=== PATIENT | male | born 1980 | race Caucasian/White ===

== ENCOUNTER → 2020-12-22 | Outpatient (CLI) | payer OTHER ==
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
== END ==
LOC: M RAD 11:30
PROVIDERS: ATTEND Nurse Practitioner Family
DX: R93.6 Abnormal findings on diagnostic imaging of limbs (principal)

== ENCOUNTER → 2020-12-29 | Outpatient (CLI) | payer OTHER ==
[~2020-12-29] MED LIST: OMEGA-3 1000MG CAPSULE ONE; PROHANCE 279.3MG/ML 15ML VIAL ONE
--- NOTE | 2020-12-29 12:00 | REP ---
INDICATION: LOCALIZED SWELLING/MASS/LUMP COMPARISON: Ultrasound 12/22/2020. TECHNIQUE: Multiple sequences obtained in the axial, coronal and sagittal planes prior to and following the intravenous administration of 21 cc ProHance. FINDINGS: In the right gluteal soft tissues a large cystic mass is present. It extends from just below the skin surface to the lateral surface of the gluteal muscles, predominantly contacting the gluteus medius muscle. There is no visible invasion of the gluteus medius muscle. Greatest craniocaudal dimension is 28.8 cm, AP 10.3 cm in transverse 10.1 cm. There are relatively smooth but lobulated margins of the cystic mass. There are internal nodular solid-appearing components, predominantly superiorly. These solid-appearing areas demonstrate ill-defined internal enhancement. The largest nodular solid component is approximately 4.7 cm in maximum diameter. There are diffuse areas of irregular wall thickening. There are multiple variable thickness internal septations. The remaining visualized soft tissues demonstrate no other evidence of mass. No adenopathy is seen along the right iliac or femoral vasculature. The visualized intrapelvic structures appear unremarkable. The visualized osseous structures are unremarkable. IMPRESSION: Large complex cystic and solid mass in the right gluteal soft tissues between the skin and underlying gluteal muscles, the solid components demonstrate areas of enhancement. 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 <Electronically signed by Jorge Tellez > 12/29/20 [id number]
== END ==
LOC: M PLAIMG 09:36
PROVIDERS: ATTEND Nurse Practitioner Family
DX: R93.7 Abnormal findings on diagnostic imaging of other parts of musculoskeletal system (principal)
CPT/HCPCS: 73723; A9576

== ENCOUNTER 2023-07-05 13:44 | Emergency (ER) | payer OTHER ==
[~2023-07-05] VITALS: Ht 177.8 cm; Wt 97.7 kg
[2023-07-05] MEDS ORDERED: TRAZ-189 PO (13:59)
[2023-07-05] MEDS ORDERED: PSEUDOEPHEDRINE 30 MG TAB PO ONE ×2 (14:30→14:50)
[2023-07-05] MEDS ORDERED: PHENYLEPHRINE 10MG/ML 1ML VIAL IV ONE (15:25)
[2023-07-05] MEDS ORDERED: PHENYLephrine 500MCG 5ML (100MCG/ML) SYRINGE XX ONE ×3 (15:35→17:05)
[2023-07-05] MEDS ORDERED: PHENYLephrine 500MCG 5ML (100MCG/ML) SYRINGE XX PRN (15:45)
[2023-07-05 18:15] VITALS: BP 139/83; TEMP 98.6; O2SAT 96
== END 2023-07-05 18:45 | disposition home or self-care (01) ==
LOC: M ED 13:44 → EDBD 13:44 → M ED 18:45
DX: N48.33 Priapism, drug-induced (principal); Z88.8 Allergy status to other drugs, medicaments and biological substances
CPT/HCPCS: 99284; J2371

== ENCOUNTER 2023-07-06 05:57 | Day surgery (SDC) | payer OTHER ==
[~2023-07-06] VITALS: Ht 177.8 cm; Wt 95.0 kg
[2023-07-06] VITALS (7 sets, daily range): BP systolic 89–125; BP diastolic 57–68; TEMP 97–97.9; O2SAT 97–100
[~2023-07-06 05:57] MED LIST changes: -OMEGA-3 1000MG CAPSULE ONE; -PROHANCE 279.3MG/ML 15ML VIAL ONE; +TRAZ-189 PO
[2023-07-06] MEDS ORDERED: NS 1,000 ML IV ONE (06:45)
[2023-07-06 06:58] LABS: BASO % 0.3 % (0.0-1.0); EOS # 0.1 10^3/uL (0.0-0.5); EOS % 0.7 % (0.0-3.0); HEMOGLOBIN 11.3 g/dl (13.5-17.5); LYMPH # 1.1 10^3/uL (1.5-5.0); LYMPH % 9.3 % (24.0-44.0); MEAN CORPUSCULAR HEMOGLOBIN 32.7 pg (27.0-33.0); MEAN CORPUSCULAR HGB CONC 34.2 g/dl (32.0-36.5); MEAN CORPUSCULAR VOLUME 95.4 fl (80.0-96.0); MONO # 0.7 10^3/uL (0.0-0.8); MONO % 5.9 % (2.0-8.0); NEUTROPHILS # 9.8 10^3/uL (1.5-8.5); NEUTROPHILS % 83.4 % (36.0-66.0); PLATELET COUNT, AUTOMATED 172 10^3/uL (150-450); RED BLOOD COUNT 3.46 10^6/uL (4.30-6.10); WHITE BLOOD COUNT 11.8 10^3/uL (4.0-10.0)
[2023-07-06 07:11] LABS: INR 1.08; PARTIAL THROMBOPLASTIN TIME 25.1 SECONDS (24.8-34.2); PROTHROMBIN TIME 13.7 SECONDS (12.5-14.5)
[2023-07-06 07:22] LABS: BLOOD UREA NITROGEN 16 MG/DL (9-23); CALCIUM LEVEL 8.5 MG/DL (8.5-10.1); CARBON DIOXIDE LEVEL 28 MMOL/L (20-31); CHLORIDE LEVEL 107 MMOL/L (98-107); CREATININE FOR GFR 0.83 MG/DL (0.70-1.30); GLOMERULAR FILTRATION RATE > 60.0 (>60); GLUCOSE, FASTING 131 MG/DL (60-100); POTASSIUM SERUM 3.6 MMOL/L (3.5-5.1); SODIUM LEVEL 141 MMOL/L (136-145)
[2023-07-06 07:29] LABS: RSV AMPLIFICATION NEGATIVE (NEGATIVE)
[2023-07-06] MEDS ORDERED: MIDAZOLAM INJ 2MG/2ML VIAL As Ordered ONE (08:03)
[2023-07-06] MEDS ORDERED: ACETAMINOPHEN 1000MG 100ML IV BAG As Ordered ONE (08:03)
[2023-07-06] MEDS ORDERED: propofoL 200 MG/20 ML VIAL As Ordered ONE ×2 (08:03→08:28)
[2023-07-06] MEDS ORDERED: METOCLOPRAMIDE INJ 10MG/2ML VIAL As Ordered ONE (08:03)
[2023-07-06] MEDS ORDERED: PHENYLEPHRINE 10MG/ML 1ML VIAL As Ordered ONE (08:03)
[2023-07-06] MEDS ORDERED: ROCURONIUM BROMIDE 50MG/5ML VIAL As Ordered ONE (08:03)
[2023-07-06] MEDS ORDERED: LIDOCAINE 2% 100MG/5ML SDV (FOR ANES.) As Ordered ONE (08:03)
[2023-07-06] MEDS ORDERED: fentaNYL 100 MCG/2 ML INJECTION As Ordered ONE ×2 (08:03→08:04)
[2023-07-06] MEDS ORDERED: SUGAMMADEX SODIUM 500 MG/5 ML VIAL (BRIDION) As Ordered ONE (08:03)
[2023-07-06] MEDS ORDERED: ONDANSETRON 4MG 2ML VIAL As Ordered ONE (08:03)
[2023-07-06] MEDS ORDERED: ePHEDrine SULFATE 25 MG/5 ML(5MG/ML) SYRINGE As Ordered ONE (08:04)
[2023-07-06] MEDS ORDERED: LIDOCAINE 1% MDV 20ML VIAL As Ordered ONE (08:07)
[2023-07-06] MEDS ORDERED: ceFAZolin 1GM VIAL IV ONE (08:24)
[2023-07-06] MEDS ORDERED: PHENYLEPHRINE 10MG/ML 1ML VIAL SC ONE (08:25)
[2023-07-06] MEDS ORDERED: HYDROMORPHONE HCL 0.5 MG/ 0.5 ML SYRINGE IV PRN (08:40)
[2023-07-06] MEDS ORDERED: fentaNYL 100 MCG/2 ML INJECTION IV PRN (08:40)
[2023-07-06] MEDS ORDERED: ONDANSETRON 4MG 2ML VIAL IV PRN (08:40)
[2023-07-06] MEDS ORDERED: METOCLOPRAMIDE INJ 10MG/2ML VIAL IV PRN (08:40)
[2023-07-06] MEDS ORDERED: diphenhydrAMINE 50MG/ML VIAL IV PRN (08:40)
[2023-07-06] MEDS ORDERED: MEPERIDINE 25 MG/ML 1ML VIAL IV PRN (08:40)
[2023-07-06] MEDS ORDERED: LR 500 ML IV ONE (09:30)
[2023-07-06] MEDS: LIDOCAINE 5% OINT 30GM TUBE TOP SCH (16:24)
[2023-07-06] MEDS: BACTRIM 160MG/800MG DS TAB PO SCH (20:32)
[2023-07-07 02:08] VITALS: BP 109/71; TEMP 98.1; O2SAT 97
[2023-07-07 06:15] VITALS: BP 115/72; TEMP 97.7; O2SAT 95
[2023-07-07 06:16] LABS: HEMOGLOBIN 8.6 g/dl (13.5-17.5)
[2023-07-07 06:17] LABS: HEMATOCRIT 25.1 % (42.0-52.0)
[2023-07-07] MEDS ORDERED: PSEUDOEPHEDRINE 30 MG TAB PO PRN (08:05)
[2023-07-07] MEDS: BACTRIM 160MG/800MG DS TAB PO SCH ×2 (08:49→21:14)
[2023-07-07] MEDS: LIDOCAINE 5% OINT 30GM TUBE TOP SCH (08:50)
[2023-07-07] MEDS ORDERED: MED REC IN PROGRESS XX SCH (12:00)
[2023-07-07] MEDS ORDERED: HOME MED LIST COMPLETE! XX SCH (12:10)
[2023-07-07 14:00] VITALS: BP 117/74; TEMP 97.9; O2SAT 97
[2023-07-07 20:03] VITALS: BP 119/76; TEMP 98.1; O2SAT 98
[2023-07-08 06:07] VITALS: BP 111/74; TEMP 98.1; O2SAT 97
[2023-07-08] MEDS: BACTRIM 160MG/800MG DS TAB PO SCH (09:21)
[2023-07-08] MEDS: LIDOCAINE 5% OINT 30GM TUBE TOP SCH (09:22)
[2023-07-08] MEDS ORDERED: BACT800T5 PO (09:49)
== END 2023-07-08 16:00 | disposition home or self-care (01) ==
LOC: M ED 05:57 → EDBD 05:57 → M SDC 05:58 → M MS5PR 10:05 → M SDC 07-08 16:00
PROVIDERS: ATTEND Specialist
DX: N48.30 Priapism, unspecified (principal)
CPT/HCPCS: 36415; 54430; 80048; 85014; 85018; 85025; 85610; 85730; 86850; 86900; 86901; 86920; 87631; 99284; J0131; J0690; J1100; J2250; J2371; J2405; J2765; J3010

== ENCOUNTER 2023-07-13 23:56 | Emergency (ER) | payer OTHER ==
[~2023-07-13] VITALS: Ht 177.8 cm; Wt 100.0 kg
[~2023-07-13 23:56] MED LIST changes: +BACT800T5 PO
[2023-07-14] MEDS: NS 1,000 ML IV ONE (00:56)
[2023-07-14 00:58] LABS: BASO % 0.4 % (0.0-1.0); EOS # 0.2 10^3/uL (0.0-0.5); EOS % 2.7 % (0.0-3.0); HEMATOCRIT 30.5 % (42.0-52.0); HEMOGLOBIN 9.9 g/dl (13.5-17.5); LYMPH # 1.5 10^3/uL (1.5-5.0); LYMPH % 18.2 % (24.0-44.0); MEAN CORPUSCULAR HGB CONC 32.5 g/dl (32.0-36.5); MEAN CORPUSCULAR VOLUME 101.7 fl (80.0-96.0); MONO # 0.6 10^3/uL (0.0-0.8); MONO % 7.4 % (2.0-8.0); NEUTROPHILS # 5.8 10^3/uL (1.5-8.5); NEUTROPHILS % 69.1 % (36.0-66.0); PLATELET COUNT, AUTOMATED 244 10^3/uL (150-450); WHITE BLOOD COUNT 8.5 10^3/uL (4.0-10.0)
[2023-07-14] MEDS: ACETAMINOPHEN TAB 650MG DOSE (2X325MG) PO ONE (01:01)
[2023-07-14] MEDS ORDERED: BACTDSTA (01:05)
[2023-07-14 01:27] LABS: BARBITURATES URINE NEGATIVE (NEGATIVE); COCAINE METABOLITE URINE NEGATIVE (NEGATIVE); METHADONE URINE NEGATIVE (NEGATIVE); OPIATES URINE NEGATIVE (NEGATIVE)
[2023-07-14 01:28] LABS: AMPHETAMINES LEVEL URINE NEGATIVE (NEGATIVE); BENZODIAZEPINES URINE NEGATIVE (NEGATIVE); PHENCYCLIDINE URINE NEGATIVE (NEGATIVE)
[2023-07-14 01:31] LABS: BLOOD UREA NITROGEN 9 MG/DL (9-23); CALCIUM LEVEL 8.9 MG/DL (8.5-10.1); CARBON DIOXIDE LEVEL 27 MMOL/L (20-31); CHLORIDE LEVEL 105 MMOL/L (98-107); CK-MB VALUE MASS < 1.0 NG/ML (<3.6); CPK CREATINE PHOSPHOKINASE 43 U/L (46-171); CREATININE FOR GFR 0.76 MG/DL (0.70-1.30); GLOMERULAR FILTRATION RATE > 60.0 (>60); GLUCOSE, FASTING 74 MG/DL (60-100); MB/CK RELATIVE INDEX 2.32 (< OR =4); POTASSIUM SERUM 3.6 MMOL/L (3.5-5.1); SODIUM LEVEL 140 MMOL/L (136-145)
[2023-07-14 01:33] LABS: THYROID STIMULATING HORMONE 0.928 uIU/ML (0.55-4.78)
[2023-07-14 01:45] LABS: CANNABINOIDS URINE POSITIVE (NEGATIVE)
[2023-07-14] MEDS: METOCLOPRAMIDE INJ 10MG/2ML VIAL IV ONE (02:25)
[2023-07-14] MEDS: diphenhydrAMINE 50MG/ML VIAL IV ONE (02:25)
[2023-07-14] MEDS: KETOROLAC 30 MG/ML 1ML VIAL IV ONE (02:25)
[2023-07-14 04:13] VITALS: BP 98/60; TEMP 98; O2SAT 97
== END 2023-07-14 04:31 | disposition home or self-care (01) ==
LOC: M ED 23:56 → EDBD 23:56 → M ED 07-14 04:31
DX: G43.909 Migraine, unspecified, not intractable, without status migrainosus (principal); R31.9 Hematuria, unspecified; Z96.0 Presence of urogenital implants; N48.39 Other priapism; F10.10 Alcohol abuse, uncomplicated; Z88.8 Allergy status to other drugs, medicaments and biological substances
CPT/HCPCS: 70450; 80048; 80307; 82077; 82550; 82553; 83605; 84443; 85025; 86850; 86900; 86901; 93005; 93041; 94760; 96361; 96374; 96375; 99285; J1200; J1885; J2765

== ENCOUNTER 2023-12-26 12:34 | Inpatient (IN) | payer OTHER ==
[~2023-12-26] VITALS: Ht 177.8 cm; Wt 88.6 kg
[~2023-12-26 12:34] MED LIST changes: +BACTDSTA
[2023-12-26 17:57] LABS: BASO % 0.5 % (0.0-1.0); EOS # 0.1 10^3/uL (0.0-0.5); HEMATOCRIT 44.9 % (42.0-52.0); HEMOGLOBIN 15.8 g/dl (13.5-17.5); LYMPH # 1.4 10^3/uL (1.5-5.0); LYMPH % 17.6 % (24.0-44.0); MEAN CORPUSCULAR HEMOGLOBIN 32.2 pg (27.0-33.0); MEAN CORPUSCULAR HGB CONC 35.2 g/dl (32.0-36.5); MEAN CORPUSCULAR VOLUME 91.6 fl (80.0-96.0); MONO # 0.5 10^3/uL (0.0-0.8); MONO % 6.7 % (2.0-8.0); NEUTROPHILS # 5.7 10^3/uL (1.5-8.5); NEUTROPHILS % 73.7 % (36.0-66.0); PLATELET COUNT, AUTOMATED 162 10^3/uL (150-450); WHITE BLOOD COUNT 7.7 10^3/uL (4.0-10.0)
[2023-12-26 18:23] LABS: BARBITURATES URINE NEGATIVE (NEGATIVE); BENZODIAZEPINES URINE NEGATIVE (NEGATIVE); COCAINE METABOLITE URINE NEGATIVE (NEGATIVE); METHADONE URINE NEGATIVE (NEGATIVE); OPIATES URINE NEGATIVE (NEGATIVE); PHENCYCLIDINE URINE NEGATIVE (NEGATIVE)
[2023-12-26 18:27] LABS: ETHYL ALCOHOL (ETHANOL) 0.006 % (0.000-0.010)
[2023-12-26 18:28] LABS: CPK CREATINE PHOSPHOKINASE 476 U/L (46-171)
[2023-12-26 18:29] LABS: ALBUMIN 4.2 G/DL (3.2-5.2); ALKALINE PHOSPHATASE 74 U/L (46-116); ALT/SGPT 24 U/L (7.0-40); AST/SGOT 26 U/L (<34); BILIRUBIN,DIRECT 0.8 MG/DL (<0.4); BILIRUBIN,TOTAL 2.2 MG/DL (0.3-1.2); BLOOD UREA NITROGEN 17 MG/DL (9-23); CALCIUM LEVEL 9.4 MG/DL (8.5-10.1); CARBON DIOXIDE LEVEL 26 MMOL/L (20-31); CHLORIDE LEVEL 107 MMOL/L (98-107); CREATININE FOR GFR 0.91 MG/DL (0.70-1.30); GLOMERULAR FILTRATION RATE > 60.0 (>60); GLUCOSE, FASTING 76 MG/DL (60-100); POTASSIUM SERUM 3.6 MMOL/L (3.5-5.1); SALICYLATE LEVEL < 3.0 MG/DL (<30); SODIUM LEVEL 140 MMOL/L (136-145); THYROID STIMULATING HORMONE 1.184 uIU/ML (0.55-4.78); TOTAL PROTEIN 6.6 G/DL (5.7-8.2)
[2023-12-26 18:31] LABS: AMPHETAMINES LEVEL URINE POSITIVE (NEGATIVE); CANNABINOIDS URINE POSITIVE (NEGATIVE)
[2023-12-27] MEDS ORDERED: HOME MED LIST COMPLETE! XX SCH (06:00)
[2023-12-27] MEDS ORDERED: PENICILLIN V POTASSIUM 500 MG TAB PO SCH (17:00)
[2023-12-27] MEDS: PENICILLIN V POTASSIUM 500 MG TAB PO ONE (18:23)
[2023-12-27] MEDS: BACITRACIN OINTMENT 30GM TUBE TOP PRN (18:24)
[2023-12-27] MEDS ORDERED: traZODone 50 MG TAB PO PRN (20:20)
[2023-12-27] MEDS ORDERED: ACETAMINOPHEN TAB 650MG DOSE (2X325MG) PO PRN (20:20)
[2023-12-27] MEDS ORDERED: LORazepam 2 MG TAB PO PRN (20:20)
[2023-12-27] MEDS ORDERED: MOM 30ML SUSPENSION UDC PO PRN (20:20)
[2023-12-27] MEDS ORDERED: MAALOX 30 ML SUSP *UDC PO PRN (20:20)
[2023-12-27] MEDS: THIAMINE 100 MG TAB PO SCH (21:31)
[2023-12-27 23:55] VITALS: BP 114/70
[2023-12-27 23:57] VITALS: BP 114/70; TEMP 97.4; O2SAT 96
[2023-12-28] MEDS: QUEtiapine FUMARATE 25 MG TAB PO PRN (00:39)
[2023-12-28 06:31] VITALS: BP 102/59; TEMP 98; O2SAT 100
[2023-12-28 08:00] VITALS: BP 102/59
[2023-12-28] MEDS: OLANZapine 2.5MG TABLET PO SCH (09:56)
[2023-12-28] MEDS: MULTIVITAMINS/MINERALS THERAP 1 TAB PO SCH (09:56)
[2023-12-28] MEDS: FOLIC ACID 1MG TAB PO SCH (09:56)
[2023-12-28 16:00] VITALS: BP 109/72
[2023-12-28 17:54] VITALS: BP 109/72; TEMP 97.4; O2SAT 99
[2023-12-28 21:17] VITALS: BP 119/78
[2023-12-29 06:06] VITALS: BP 109/73; TEMP 97.7; O2SAT 98
[2023-12-29 08:01] LABS: CHOLESTEROL RISK RATIO 2.51 (<5); HDL CHOLESTEROL 45.7 MG/DL (>40); LDL CHOLESTEROL 51.3 MG/DL (<100); NON-HDL-C 69.3 MG/DL
[2023-12-29 08:07] VITALS: BP 137/82
[2023-12-29 18:02] VITALS: BP 111/69; TEMP 97.3
[2023-12-30 06:31] VITALS: BP 132/87; TEMP 98.6; O2SAT 99
[2023-12-30 18:20] VITALS: BP 144/78; TEMP 97.7
[2023-12-30] MEDS: OLANZapine 5 MG TAB PO SCH (20:54)
[2023-12-30] MEDS: diphenhydrAMINE 25MG CAP PO PRN (20:54)
[2023-12-30 22:15] LABS: BASO % 0.5 % (0.0-1.0); EOS # 0.1 10^3/uL (0.0-0.5); EOS % 1.8 % (0.0-3.0); HEMATOCRIT 41.2 % (42.0-52.0); HEMOGLOBIN 14.3 g/dl (13.5-17.5); LYMPH # 1.8 10^3/uL (1.5-5.0); LYMPH % 23.8 % (24.0-44.0); MEAN CORPUSCULAR HEMOGLOBIN 32.6 pg (27.0-33.0); MEAN CORPUSCULAR HGB CONC 34.7 g/dl (32.0-36.5); MEAN CORPUSCULAR VOLUME 93.8 fl (80.0-96.0); MONO # 0.6 10^3/uL (0.0-0.8); MONO % 7.5 % (2.0-8.0); NEUTROPHILS # 4.9 10^3/uL (1.5-8.5); PLATELET COUNT, AUTOMATED 148 10^3/uL (150-450); RED BLOOD COUNT 4.39 10^6/uL (4.30-6.10); WHITE BLOOD COUNT 7.4 10^3/uL (4.0-10.0)
[2023-12-31 06:16] VITALS: BP 135/68; TEMP 97.1; O2SAT 100
[2023-12-31 17:35] VITALS: BP 127/80; TEMP 97.2; O2SAT 97
[2023-12-31] MEDS: PILL CUTTER 1 EACH XX PRN (21:33)
[2023-12-31] MEDS: OLANZapine 5 MG TAB PO SCH (21:33)
[2024-01-01 06:23] VITALS: BP 136/75; TEMP 98.2; O2SAT 100
[2024-01-01] MEDS ORDERED: OLAN1TAB16 PO (10:56)
[2024-01-01] MEDS: IBUPROFEN 400MG TAB PO PRN (12:06)
[2024-01-01] MEDS ORDERED: PERI12LIQ PO (13:31)
[2024-01-01] MEDS ORDERED: AUGM500T34 PO (13:31)
== END 2024-01-01 13:05 | disposition home or self-care (01) | DRG 751 ==
LOC: M ED 12:34 → M ED INP 12-27 20:17 → M PSY 12-27 23:24
PROVIDERS: ADMIT Student in an Organized Health Care Education/Training Program; ATTEND Student in an Organized Health Care Education/Training Program
DX: F29 Unspecified psychosis not due to a substance or known physiological condition (principal); F15.151 Other stimulant abuse with stimulant-induced psychotic disorder with hallucinations; F12.10 Cannabis abuse, uncomplicated; K05.10 Chronic gingivitis, plaque induced; M27.40 Unspecified cyst of jaw; Z56.0 Unemployment, unspecified; Z88.8 Allergy status to other drugs, medicaments and biological substances

== ENCOUNTER 2024-04-03 05:45 | Emergency (ER) | payer OTHER ==
[~2024-04-03] VITALS: Ht 177.8 cm; Wt 87.7 kg
[~2024-04-03 05:45] MED LIST changes: +AUGM500T34 PO; +OLAN1TAB16 PO; +PERI12LIQ PO
[2024-04-03 06:04] VITALS: TEMP 96.3
[2024-04-03 07:15] VITALS: O2SAT 99
[2024-04-03] MEDS: ACETAMINOPHEN 500 MG TAB PO ONE (07:47)
[2024-04-03] MEDS: BOOSTRIX VACCINE (TETANUS/DIPHTH/ACEL. PERTUSSIS) 0.5ML SYR IM.IMMUN ONE (07:48)
[2024-04-03 07:51] VITALS: BP 111/75
[2024-04-03] MEDS ORDERED: BACI500O60 EX (08:45)
== END 2024-04-03 09:18 | disposition home or self-care (01) ==
LOC: M ED 05:45
DX: S01.01XA Laceration without foreign body of scalp, initial encounter (principal); S70.11XA Contusion of right thigh, initial encounter; W22.09XA Striking against other stationary object, initial encounter; Z23 Encounter for immunization; Z79.2 Long term (current) use of antibiotics; Z79.899 Other long term (current) drug therapy; Z88.8 Allergy status to other drugs, medicaments and biological substances; Y92.9 Unspecified place or not applicable; Y93.89 Activity, other specified; Y99.9 Unspecified external cause status